=== PATIENT | male | born 1970 | race African-American/Black ===

== ENCOUNTER 2017-08-01 05:28 | Emergency (ER) | payer OTHER ==
--- NOTE | 2017-08-01 07:16 | ER Document Report ---
HPI - HPI Patient complains to provider of: Sore throat Onset: Other - Tuesday Pain Level: 3 Context: 47-year-old non-smoker male complaining of sore throat and cough since last Tuesday. He had a fever initially but none now. Everybody wanted him to come in and be checked for strep throat. No chest pain or shortness of breath. No nausea vomiting or diarrhea. No headache. Associated Symptoms: None Exacerbated by: Denies Relieved by: Denies Similar symptoms previously: No Recently seen / treated by doctor: No - ROS ROS below otherwise negative: Yes Systems Reviewed and Negative: Yes All other systems reviewed and negative - EENT EENT: REPORTS: Sore Throat - RESPIRATORY Respiratory: REPORTS: Coughing Past Medical History - General Information source: Patient - Social History Smoking Status: Never Smoker Frequency of alcohol use: None Drug Abuse: None Lives with: Family Family History: Reviewed & Not Pertinent Patient has suicidal ideation: No Patient has homicidal ideation: No - Medical History Medical History: Negative Renal/ Medical History: Denies: Hx Peritoneal Dialysis Surgical Hx: Negative Vertical Provider Document - CONSTITUTIONAL Agree With Documented VS: Yes - INFECTION CONTROL TRAVEL OUTSIDE OF THE [place] IN LAST 30 DAYS: No - HEENT HEENT: Normocephalic. negative: Conjuctival Injection, Pharyngeal Erythema, Tympanic Membrane Red - NECK Neck: Supple. negative: Lymphadenopathy-Left, Lymphadenopathy-Right - RESPIRATORY Respiratory: Breath Sounds Normal, No Respiratory Distress O2 Sat by Pulse Oximetry: 96 - CARDIOVASCULAR Cardiovascular: Regular Rate, Regular Rhythm - GI/ABDOMEN Gastrointestinal: Abdomen Soft, Abdomen Non-Tender, No Organomegaly - MUSCULOSKELETAL/EXTREMETIES Musculoskeletal/Extremeties: MAEW, FROM - NEURO Level of Consciousness: Awake, Alert, Appropriate - DERM Integumentary: Warm, Dry, No Rash Course - Vital Signs Vital signs: Temp Pulse Resp BP Pulse Ox 98.1 F 94 18 123/76 96 08/01/17 05:31 08/01/17 05:31 08/01/17 05:31 08/01/17 05:31 08/01/17 05:31 Discharge - Discharge Clinical Impression: Sore throat, Cough Condition: Good Disposition: HOME, SELF-CARE Instructions: Sore Throat ([facility]), Upper Respiratory Illness ([facility]), Acetaminophen , Use of [id number]-Lkmboxk Ibuprofen ([facility]) Additional Instructions: drink plenty of fluids tylenol and motrin over the counter for pain Return to the emergency room any concerns The rapid strep is negative but the throat culture will be resulted in 48 hours Forms: Return to Work
[2017-08-01 08:13] VITALS: BP 120/73
== END 2017-08-01 08:13 | disposition home or self-care (01) ==
LOC: ER 05:28
DX: J02.9 Acute pharyngitis, unspecified (principal); R05 Cough
CPT/HCPCS: 87070; 87880; 99283